=== PATIENT | male | born 1995 | race Caucasian/White ===

== ENCOUNTER 2018-02-09 21:15 | Emergency (ER) | payer SELFPAY ==
[2018-02-10] MEDS: ONDANSETRON 4 MG INJ IV (00:31)
[2018-02-10] MEDS: morphine 4 MG/ML VIAL IV (00:31)
[2018-02-10] MEDS: SOD CHLORIDE 0.9% 100 ML (00:57)
[2018-02-10] MEDS: IOHEXOL 300MG/ML 150 ML BTL (00:57)
[2018-02-10 01:01] LABS: ALANINE AMINOTRANSFERASE 18 IU/L (13-69); ALBUMIN 4.3 g/dl (3.3-4.9); ALBUMIN/GLOBULIN RATIO 0.97; ALKALINE PHOSPHATASE 105 IU/L (42-121); ANION GAP 16 (8-16); ASPARTATE AMINO TRANSFERASE 18 IU/L (15-46); BILIRUBIN,INDIRECT 0.3 mg/dl (0-1.1); BILIRUBIN,TOTAL 0.3 mg/dl (0.2-1.3); BLOOD UREA NITROGEN 11 mg/dl (7-20); CALCIUM 9.4 mg/dl (8.4-10.2); CARBON DIOXIDE 26 mmol/L (21-31); CHLORIDE 103 mmol/L (97-110); CREATININE 0.71 mg/dl (0.61-1.24); GLUCOSE 107 mg/dl (70-220); SODIUM 141 mmol/L (135-144); TOTAL PROTEIN 8.7 g/dl (6.1-8.1)
[2018-02-10 01:24] LABS: ADD UMIC NO; UR ASCORBIC ACID NEGATIVE (NEGATIVE); UR BILIRUBIN (Dip) NEGATIVE (NEGATIVE); UR BLOOD (Dip) NEGATIVE (NEGATIVE); UR CLARITY CLEAR (CLEAR); UR COLOR YELLOW (YELLOW); UR GLUCOSE (Dip) NEGATIVE (NEGATIVE); UR KETONES (Dip) NEGATIVE (NEGATIVE); UR LEUKOCYTE ESTERASE (Dip) NEGATIVE Leu/ul (NEGATIVE); UR NITRITE (Dip) NEGATIVE (NEGATIVE); UR SPECIFIC GRAVITY (Dip) 1.016 (1.003-1.030); UR TOTAL PROTEIN (Dip) NEGATIVE (NEGATIVE); UR UROBILINOGEN (Dip) NEGATIVE (NEGATIVE)
== END 2018-02-10 02:36 | disposition home or self-care (01) ==
LOC: FTE 21:15
DX: S63.502A Unspecified sprain of left wrist, initial encounter (principal); S30.1XXA Contusion of abdominal wall, initial encounter; V49.40XA Driver injured in collision with unspecified motor vehicles in traffic accident, initial encounter
CPT/HCPCS: 36415; 73110-LT; 74177; 80053; 81003; 96374; 96375; 99285-25